=== PATIENT | male | born 1990 | race African-American/Black ===

== ENCOUNTER 2018-05-18 13:19 | Emergency (ER) | payer MEDICAID ==
[~2018-05-18] VITALS: Ht 177.8 cm; Wt 74.5 kg
[2018-05-18 17:56] VITALS: BP 123/83
[2018-05-18] MEDS ORDERED: BACITRACIN ZINC OINT UDPKT TOP ONE (17:56)
== END 2018-05-18 18:12 | disposition home or self-care (01) ==
LOC: ER 13:19
DX: S80.212A Abrasion, left knee, initial encounter (principal); L03.116 Cellulitis of left lower limb; F12.10 Cannabis abuse, uncomplicated; V29.3XXA Motorcycle rider (driver) (passenger) injured in unspecified nontraffic accident, initial encounter; Y93.89 Activity, other specified; Y92.488 Other paved roadways as the place of occurrence of the external cause
CPT/HCPCS: 99283